=== PATIENT | female | born 1950 | race Caucasian/White ===

== ENCOUNTER 2016-09-14 11:47 | Inpatient (IN) | payer OTHER ==
--- NOTE | ~2016-09-14 | DS ---
Unit #: [id number] #: [id number] Patient: MC BANKS [id number] [facility]. [place], [place] [address] [id number] I MR#: [id number] NAME: MC BANKS ROOM: 340 Age: 65 Sex: F Admission Date: 09/14/2016 : 1950 Discharge Date: 09/16/2016 Attending Physician: Darcy Love M.D. Primary Care Physician: No Primary Care Physician DISCHARGE SUMMARY FINAL DIAGNOSES 1. Acute exacerbation of chronic obstructive pulmonary disease. 2. Acute bronchitis. 3. Anxiety syndrome. 4. Headache, etiology uncertain. 5. Chest pain. CONSULTANTS Dr. Nicholson. PROCEDURES 1. Stress test. 2. 2D echo. Ms. Banks is a 65-year-old female with a history of COPD who has not seen any physician in two years. She presented to the emergency room and, because we had seen her in the past, she was admitted to our service. She was thought to have an acute bronchitis and exacerbation of COPD. She as originally started on Rocephin and Zithromax. She has got an allergy to erythromycin base and, therefore, I stopped the Zithromax. Her chest x-ray, however, did not show any definite infiltrate and on repeat still didn't show any definite infiltrate. She was started on Solu-Medrol 125 IV q.8 but that was tapered rather quickly. She has been tapered down but is rather insistent on leaving today. She was seen by Dr. Nicholson and she had a 2D echo which revealed mild elevation in RVSP two 40 mmHg and she also had grade 1 diastolic dysfunction, normal right ventricular size and function and no significant valve abnormalities except trace mitral regurgitation and tricuspid valve mild regurgitation. Therefore, looking at the results, it's a fair chance that if she has pulmonary hypertension it is group 2 in nature. She developed a headache, had it last night, was given one Vicodin and then said Tylenol wasn't enough for headache today. I said I am concerned because she hadn't seen a doc in two years, she doesn't take pain medicine at home as far as I know and, therefore, thought that she needed a CT head if she needed opiates to take care of her headache. She has refused this and is basically demanding to go home. Therefore, I will comply with her wishes. She did have a stress test today and that revealed small anterior ischemic area and Dr. De Luna suggested medical management. He added Ranexa and she was already started on Norvasc. She will be sent home on the following medicines: 1. Albuterol mini nebs, which she should already have, q.i.d. p.r.n. 2. Prednisone 10 mg three p.o. daily, decreasing every three days to Unit #: [id number] #: [id number] Patient: MC BANKS. 3. Norvasc 5 mg p.o. daily. 4. Doxycycline 100 mg p.o. b.i.d. 5. Ranexa 500 mg p.o. b.i.d. I will give her a prescription for Spiriva. Will need to see if discharge management can help her get some of these medicines filled. She can follow with me in three to four weeks but she absolutely has to get a primary doc. I will not write Xanax. Dictated by... Bryan Samson M.D. AMELIA/markos TD: 09/17/2016 07:12 JOB #: [id number] DISCHARGE SUMMARY Page 1 of 1 X Bryan Samson MD X DISCHARGE SUMMARY
--- NOTE | ~2016-09-14 | CR72 ---
[facility] A Service of [facility] RADIOLOGY TEXT RESULTS PATIENT: MC UFENTES LOCATION: [facility] : [birth year] UNIT #: [id number] AGE: [address]: Mervin Shepard MD SEX: F ORDER DR: [id number] [facility] [address] [place], [place] [address] [id number] E MR#: [id number] Acc #: [id number] NAME: MC FUENTES : 1950 SEX: F STUDY DATE/TIME: 09/14/2016 11:44 UNIT: [facility] ROOM: STUDY DESCRIPTION: CR Chest Single View Portable Attending Physician: Devante Shepard M.D. Ordering Physician: Ed Jordin Walker M.D. Primary Care Physician: Physician No Primary Care MEDICAL IMAGING REPORT This report is preliminary unless electronic signature is present EXAM Chest portable 09/14/2016 1144 hours CLINICAL HISTORY 65-year-old woman complaining of chest pain and shortness of air since last night. Former smoker with history of COPD. COMPARISON 07/20/2014 FINDINGS Portable upright chest demonstrates the patient to be somewhat rotated to the right. The heart size is within normal limits. The aorta is mildly tortuous. There are emphysematous changes in the lungs with pulmonary venous distension and mild bibasilar interstitial prominence increased over the prior exam. This could represent atelectasis or mild basilar edema. No effusions. IMPRESSION Emphysematous changes with mild pulmonary venous distension and increase in interstitial markings at both lung bases as compared to 07/20/2014. Some of this could be technical but basilar interstitial edema cannot be excluded. There is no cardiomegaly or pleural fluid. Dictated by... Lucy Burns M.D. THIS IS AN ELECTRONICALLY VERIFIED REPORT Lucy Burns M.D. at 09/14/2016 2:29 PM NATALIYA/juan c TD: 09/14/2016 13:56 [facility] A Service of [facility] RADIOLOGY TEXT RESULTS PATIENT: MC FUENTES [facility] #: [id number] : [birth year] UNIT #: [id number] AGE: [address]: Mervin Shepard MD SEX: F ORDER DR: JOB #: [id number] MEDICAL IMAGING REPORT Page 1 of 1 COPY
--- NOTE | ~2016-09-14 | ST ---
Unit #: [id number] #: [id number] Patient: CM FUENTES [id number] [address] [place], [place] [address] [id number] I MR#: [id number] NAME: MC FUENTES. : 1950 SEX: F STUDY DATE/TIME: 09/16/2016 UNIT: C3A PCU ROOM: 340 STUDY DESCRIPTION: Stress cadriolite imaging Attending Physician: Darcy Love M.D. Primary Care Physician: No Primary Care Physician CARDIOLOGY REPORT EXAM Stress Cardiolite imaging. INDICATION FOR STUDY Dyspnea, atypical chest discomfort, shortness of breath, chronic obstructive pulmonary disease. SUMMARY The patient received Lexiscan intravenously while at rest, as well as technetium 99m Cardiolite 10.55 and 33.4 mCi at rest and stress respectively. Appropriate views were obtained. FINDINGS Resting ECG is abnormal with 0.[address] depression in leads, 2, 3, AVF, V4 through V6. With stress there was additional 0.[address] depression, but no dysrhythmias and no heart block. Perfusion images demonstrate enlarged RV. Left ventricular size is normal. End-diastolic volume 70 ml, ejection fraction 67%, with no discrete wall motion abnormalities. Qualitative ejection fraction appears to be closer to 55%. There is no significant patient motion noted at rest or stress. There is breast attenuation artifact, but no increased lung uptake. Right ventricle appears enlarged. Left ventricular size appears normal. Summed stress scores is 5. No summed difference scores is available. Perfusion images demonstrate intestinal artifact more present at stress than at rest. There is a moderate decrease in perfusion of a small area of the distal anterior wall with stress, not present at rest. Otherwise perfusion is normal and equivalent between rest and stress. IMPRESSION 1. No infarction. 2. Small area of moderate distal anterior wall ischemia. 3. Medications recommended, since chest pain is rare. 4. Normal heart function and left ventricular size. 5. Right ventricle appears enlarged. Dictated by... Heath De Luna M.D. Wan TD: 09/16/2016 13:20 Unit #: [id number] #: [id number] Patient: MC FUENTES JOB #: [id number] CARDIOLOGY REPORT Page 1 of 1 X Heath De Luna MD CARDIOLOGY REPORT
--- NOTE | ~2016-09-14 | HP ---
Unit #: [id number] #: [id number] Patient: MC BANKS [id number] [address] [place], [place] [address] [id number] I MR#: [id number] NAME: MC BANKS. ROOM: 340 Age: 65 Sex: F Admission Date: 09/14/2016 : 1950 Attending Physician: Darcy Love M.D. Primary Care Physician: Primary Care Physician No HISTORY AND PHYSICAL HISTORY OF PRESENT ILLNESS Ms. Banks is a 65-year-old female seen by us in the past, now presents with recurrent shortness of air. Unfortunately, she does not see a physician regularly. That is, does not see a primary physician, has not seen us in two years, has not seen us in the office but was admitted to us again. She complains of a cough but not really coughing up much of anything. She has been short of breath for a few days. She does not really want to talk a whole lot because she is short of breath and anxious. She has not smoked in about two years. PAST MEDICAL HISTORY Significant for: 1. Pneumonia back in 2014. 2. History of COPD. 3. Hypertension. 4. Bipolar disorder. PAST SURGICAL HISTORY Tubal ligation. HOME MEDICATIONS Include: Proventil two puffs q.i.d. p.r.n. ALLERGIES 1. Sulfa. 2. Erythromycin. SOCIAL HISTORY She did previously smoke but she quit two years ago. FAMILY HISTORY Significant for colon cancer and coronary artery disease. REVIEW OF SYSTEMS She has no nausea, vomiting or diarrhea. She only complains of anxiety. PHYSICAL EXAMINATION VITAL SIGNS: Temperature 98.6, pulse 103, respirations 20, blood pressure 148/92. GENERAL: She presents as an older female in no acute distress. Unit #: [id number] #: [id number] Patient: MC BANKS NECK: Without adenopathy. LUNGS: Evaluation of her lungs reveals that her breathing is not labored. She has fair inspiratory breath sounds. She has expiratory wheezes bilaterally. HEART: Mildly tachycardic. ABDOMEN: Soft. Bowel sounds are present. EXTREMITIES: Without edema. DIAGNOSTIC STUDIES LABORATORY: Blood gas was done on 40%, I think it was BiPAP, pH 7.368, pCO2 of 52, pO2 of 150. Serum chemistry significant for BUN 17, creatinine 0.8. BNP was only 34. White blood cell count was 8.9, hemoglobin 13, hematocrit 41, platelets 235,000. IMAGING: Chest x-ray to my exam reveals increased interstitial markings bilaterally, particularly at the bases in a symmetric fashion. I agree with the way it was written by the radiologist that this could be consistent with some edema. CARDIOVASCULAR: EKG, to my exam, reveals rate 99, sinus rhythm, nonspecific ST changes. IMPRESSION 1. Acute exacerbation of chronic obstructive pulmonary disease. 2. Increased interstitial markings, etiology uncertain. I am not really sure with the BNP that this is truly congestive heart failure although it is certainly still a consideration. PLAN 1. Will check a 2D echo tomorrow. 2. Treat her with IV steroids and IV Rocephin but will hold Zithromax. 3. I will get a viral DNA probe. Dictated by Manisha Welsh/govind TD: 09/14/2016 19:27 JOB #: [id number] HISTORY AND PHYSICAL Page 1 of 1 X Bryan Samson MD HISTORY AND PHYSICAL
--- NOTE | ~2016-09-14 | ST ---
Unit #: [id number] #: [id number] Patient: MC FUENTES [id number] [address] [address] [id number] I MR#: [id number] NAME: MC FUENTES. : 1950 SEX: F STUDY DATE/TIME: 09/16/2016 UNIT: C3A PCU ROOM: 340 STUDY DESCRIPTION: Cardiac stress test. Attending Physician: Darcy Love M.D. Primary Care Physician: No Primary Care Physician CARDIOLOGY REPORT EXAM Cardiac stress test. Results included in Cardiolite imaging report. Dictated by... Heath De Luna M.D. PJR/gz TD: 09/16/2016 13:27 JOB #: [id number] CARDIOLOGY REPORT Page 1 of 1 X Heath De Luna MD CARDIOLOGY REPORT
--- NOTE | ~2016-09-14 | CR63 ---
[facility] A Service of [facility] & [facility] RADIOLOGY TEXT RESULTS PATIENT: MC FUENTES LOCATION: [facility] 340-01 : [birth year] UNIT #: [id number] AGE: [address]: Tomás Love MD SEX: F ORDER DR: [id number] [facility] [address] [place], [place] [address] [id number] I MR#: [id number] Acc #: [id number] NAME: MC FUENTES : 1950 SEX: F STUDY DATE/TIME: 09/15/2016 11:05 UNIT: [address] ROOM: [facility] STUDY DESCRIPTION: CR Chest 2 View Attending Physician: Darcy Love M.D. Ordering Physician: Darcy Love M.D. Primary Care Physician: No Primary Care Physician MEDICAL IMAGING REPORT This report is preliminary unless electronic signature is present EXAM 2-view chest 09/15/2016. HISTORY 65-year-old female with cough and congestion for 2 days. Essential hypertension. COMPARISON Chest 09/14/2016. FINDINGS 2 views of the chest demonstrate clear lungs. No pleural effusion or pneumothorax. Heart size, mediastinum within normal limits. Pulmonary vasculature unremarkable. IMPRESSION No acute cardiopulmonary findings. Dictated by... Nba Andrea M.D. THIS IS AN ELECTRONICALLY VERIFIED REPORT Nba Andrea M.D. at 09/16/2016 8:11 AM ELISABETH/toshia TD: 09/15/2016 15:54 JOB #: [id number] MEDICAL IMAGING REPORT Page 1 of 1 COPY
--- NOTE | ~2016-09-14 | CO ---
Unit #: [id number] #: [id number] Patient: MC FUENTES [id number] [address] [place], [place] [address] [id number] I MR#: [id number] NAME: MC FUENTES. ROOM: 340 Age: 65 Sex: F Admission Date: 09/14/2016 : 1950 Attending Physician: Darcy Love M.D. CONSULTATION REPORT REASON FOR CONSULTATION Chest pain. HISTORY OF PRESENT ILLNESS This is a pleasant 65-year-old female, who appears much older than her stated age. She has a past medical history of known COPD, hypertension, bipolar disorder, severe anxiety, tobacco abuse, as well as reformed alcoholism. The patient was admitted secondary to shortness of breath and dyspnea on exertion. She was currently being evaluated in the ER T3 and is currently on BiPAP. The patient's daughter is at bedside. The patient was able to give me information, also additional information was obtained from the daughter as well as the previous chart and records. According to the daughter, the patient is on home O2 24 hours a day at 2 L nasal cannula. She also has not had insurance for the past 2 years and has not had much followup as far as her medical status secondary to cost. She reports she was at home noticing increasing issues with shortness of breath that worsened yesterday. Reports extreme shortness of breath with exertion as well as complaints of substernal chest discomfort which radiates underneath both breasts bilaterally. She denies any complaints of diaphoresis, nausea, or vomiting and denies any radiation of the pain into her arms, jaw, or teeth. According to the daughter and the patient, she has never had formal ischemic workup on her heart. She has been on blood pressure medication in the past, but has not been recently secondary to inability to afford them. The daughter states, however, recently she was approved for Medicaid. Initial point of care troponins have been negative. EKG shows normal sinus rhythm, rate of 99 beats per minute, nonspecific ST abnormality. No acute ischemic changes noted. QTc interval 449 milliseconds. Her chest x-ray shows emphysema, changes with mild pulmonary venous distention and increase in interstitial markings at both lung bases. Her BNP is normal at 34. In the emergency room, she has been treated with aspirin as well as nitroglycerin which has relieved her pain somewhat. At present, her primary complaint is just feeling like she cannot breathe. Again, she is currently on BiPAP and ABGs are currently pending. Pulmonary has been consulted to see. PAST MEDICAL HISTORY 1. COPD, on chronic oxygen therapy 2 L nasal cannula. 2. Hypertension, has not been on medications for quite some time secondary to inability to afford them. 3. Bipolar disorder with severe anxiety. PAST SURGICAL HISTORY Unit #: [id number] #: [id number] Patient: MC FUENTES A Tubal ligation. ALLERGIES Erythromycin and sulfa. HOME MEDICATIONS Proventil inhalation b.i.d., albuterol q.i.d. The patient thinks she was on amlodipine 5 mg p.o. daily, however, she has not been on this in quite some time secondary to inability to afford. FAMILY HISTORY Positive for coronary artery disease and PR in her father who in his 50s. SOCIAL HISTORY The patient is a tobacco user, smokes 1 to 2 packs a day for approximately 40 years. She is a reformed alcoholic, drinking approximately 15 years ago. Denies illicit drug use. Of note, the patient has been off some of her medications for the last couple of years secondary to no insurance. She states she was recently approved for Medicaid. REVIEW OF SYSTEMS Negative except for what was stated above in the HPI. PHYSICAL EXAMINATION VITAL SIGNS: Temperature 98.2, pulse is 99 to 110, respiratory rate 22, blood pressure 150/90. GENERAL: This is a pleasant 65-year-old female, who is currently in the ER T3 on BiPAP. HEENT: Head is atraumatic and normocephalic. Pupils are equal and round. Mucous membranes were not assessed secondary to presence of mask. CARDIOVASCULAR: S1, S2. Slightly tachycardic. No murmurs, gallops, or rubs. CHEST: Lungs breath sounds are diminished throughout. Minimal air movement is noted. ABDOMEN: Soft, nontender, nondistended. No hepatomegaly. No masses. EXTREMITIES: Pulses are weak. Extremities are cool. She does have some discoloration of her toes bilaterally which the daughter states is chronic. NEUROLOGIC: She is awake, alert, and oriented. She moves all extremities. She answers questions appropriately and follows commands with ease. DIAGNOSTIC STUDIES LABORATORY RESULTS: Glucose 90, BUN 17, creatinine 0.8, sodium 141, potassium 3.8, chloride 102, CO2 of 31. BNP 34. Point of care troponins have been negative x2. Hemoglobin 13.0, hematocrit 41.3, WBCs 8.9, platelet count 235. She has repeat troponin which is pending. IMAGING STUDIES: Chest x-ray shows changes suggestive of emphysema with mild pulmonary venous distention and increased interstitial markings at both lung bases. There is no cardiomegaly or pleural fluid. CARDIOVASCULAR STUDIES: EKG shows normal sinus rhythm, rate 99 beats per minute, nonspecific ST abnormality. No acute ischemic changes noted. QTc interval 449 msec. IMPRESSION 1. Acute chronic obstructive pulmonary disease exacerbation. Unit #: [id number] #: [id number] Patient: MC FUENTES 2. Chest pain. Rule out myocardial infarction. 3. Hypertension. 4. Bipolar disorder. 5. Severe anxiety. 6. Continued tobacco abuse. 7. Reformed alcoholic, quit drinking approximately 15 years ago. PLAN The patient is currently on BiPAP. Thus far, her point of care enzymes have been negative. Her EKG appears within normal limits except for some nonspecific ST abnormality. There is no acute ischemic change noted. The patient does have risk factors for coronary artery disease which include hypertension, tobacco abuse, and a family history of coronary artery disease. It appears she has not had any formal ischemic workup in the past and once her respiratory status is better, we will need to do ischemic heart disease workup. We will trend cardiac enzymes and check a TSH and fasting lipid profile and she will have an EKG in the morning tomorrow. We will also check 2D echocardiogram to assess her left ventricular systolic function. She will also be restarted on Norvasc 5 mg p.o. daily with parameters to hold for systolic blood pressure less than 100. This has been discussed with the daughter and the patient and they are agreeable. Dictated by... William Stevenson/modl TD: 09/15/2016 06:36 JOB #: [id number] CONSULTATION REPORT Page 1 of 1 X Tiffanie,Harleen M AUTOMOTIVE MACHINIST X CONSULTATION REPORT
--- NOTE | ~2016-09-14 | EKG ---
PATIENT: MC FUENTES UNIT #: [id number] Ventricular Rate: 99 BPM Atrial Rate: 99 BPM P-R Interval: 124 ms QRS Duration: 78 ms Q-T Interval: 350 ms QTC Calculation(Bezet): 449 ms P Pooler: 67 degrees Calculated R Pooler: 48 degrees Calculated T Pooler: 40 degrees Diagnosis Line: Normal sinus rhythm Diagnosis Line: Nonspecific ST abnormality Diagnosis Line: Otherwise normal ECG Diagnosis Line: When compared with ECG of 18-JUL-2014 13:54, Diagnosis Line: T wave inversion no longer evident in Inferior Diagnosis Line: leads Diagnosis Line: Confirmed by ELOISA ACEVEDO MD ([id number]) on 09/16/2016 Diagnosis Line: 4:03:29 PM INTERPRETING MD: CURTIS HOWELL
--- NOTE | ~2016-09-14 | EKG ---
PATIENT: MC FUENTES UNIT #: [id number] Ventricular Rate: 91 BPM Atrial Rate: 91 BPM P-R Interval: 122 ms QRS Duration: 84 ms Q-T Interval: 366 ms QTC Calculation(Bezet): 450 ms P [place]: 70 degrees Calculated R [place]: 49 degrees Calculated T [place]: 42 degrees Diagnosis Line: Normal sinus rhythm Diagnosis Line: Normal ECG Diagnosis Line: Diagnosis Line: Confirmed by RAMSES ANDRES MD ([id number]) on 09/16/2016 Diagnosis Line: 8:37:16 PM INTERPRETING MD: DMITRY HOWELL
[2016-09-14 11:27] LABS: POC - CKMB 2.7 ng/mL (0.0-7.9); POC - TROPONIN <0.05 ng/mL (<=0.05)
[~2016-09-14 11:47] MED LIST: ACETAMINOPHEN325 MG PO; ALBUTEROL MININEB NEB; ALBUTEROL1.25 MG/3 IH; ALBUTEROL17 GM INH; ALBUTEROL2.5 MG/0.5 IH; AZITHROMYCIN1 GM PO; BLOOD PRESSURE PILL; BUDESONIDE0.5 MG/2 M IH; BUPROPION XL150 MG PO; CEFTIN PO; CIPRO PO; COMBIVENT14.7 GM INH; ERYTHROCIN STE250 M2 PO; FLUOXETINE 10 MG; GUAIFENESIN; HYDROXYZINE HCL10 MG; HYDROXYZINE HCL25 M1 PO; HYDROXYZINE PAM25 M1 PO; INHALER; LEVAQUIN PO; LEVAQUIN750 MG PO; LEVOFLOXACIN500 MG; MORGIDOX100 MG PO; NEBULIZER MACHINE; NEBULIZER1 PKT MC; NICOTINE TRANSD14 MG EXT; NICOTINE TRANSD21 MG EXT; NORVASC PO; PEPCID40 MG PO; PERFOROMIS20 MCG/2 M IH; PREDNISOLONE5 GM; PREDNISONE PO; PREDNISONE10 MG PO; PREDNISONE10 MG/DOSE PO; PROVENTIL2 MG PO; PROVENTIL4 MG; SARAFEM20 MG PO; SELFEMRA20 MG PO; SPIRIVA18 MCG INH; WELLBUTRIN SR150 MG PO; WELLBUTRIN XL150 M1 PO; ZITHROMAX PO; [UNRECOGNIZED DRUG - OTHER]
[2016-09-14] MEDS ORDERED: ALBUTEROL 0.5ML INH (11:48)
[2016-09-14] MEDS ORDERED: ALBUTEROL20 ml INH (11:48)
[2016-09-14 11:57] LABS: BASOPHIL% 0.5 % (0-2.5); EOSINOPHIL# 0.1 X10e3 (0-0.7); HEMATOCRIT 41.3 % (35.0-45.0); LYMPHOCYTE# 2.4 X10e3 (1.0-3.5); LYMPHOCYTE% 27.4 % (17.0-45.0); MEAN CELL VOLUME 86.9 FL (83-96); MEAN CORPUSCULAR HEMOGLOBIN 27.3 PG (28-34); MEAN CORPUSCULAR HGB CONC 31.5 g/dL (30-36); MEAN PLATELET VOLUME 9.4 FL (6.5-11.5); MONOCYTE# 0.5 X10e3 (0-1.0); MONOCYTE% 5.9 % (3.0-12.0); NEUTROPHIL# 5.8 X10e3 (1.5-7.1); NEUTROPHIL% 65.2 % (40-75); PLATELET COUNT 235 X10e3 (140-420); RED BLOOD COUNT 4.75 X10e (3.90-5.30); RED CELL DISTRIBUTION WIDTH 14.9 % (11.0-15.5); WHITE BLOOD COUNT 8.9 X10e3 (4.0-10.5)
[2016-09-14 12:03] LABS: DIFF IND NO
[2016-09-14 12:20] LABS: BUN/CREATININE RATIO 21.25; CALCIUM SERUM 9.2 mg/dL (8.4-10.2); CREATININE SERUM 0.8 mg/dL (0.6-1.4); GLOM FILT RATE Estimated 78.5 mL/min (>60); POTASSIUM 3.9 mmol/L (3.5-5.1)
[2016-09-14 12:56] LABS: POC - CKMB 3.1 ng/mL (0.0-7.9); POC - TROPONIN <0.05 ng/mL (<=0.05)
[2016-09-14 15:41] LABS: ARTERIAL BLD GAS O2 SATURATION 96.3 % (90.0-100.0); ARTERIAL BLOOD GAS CARBOXY HB 2.3 %sat (0.0-9.0); ARTERIAL BLOOD GAS HCO3 30.2 mmol/L; ARTERIAL BLOOD GAS MET HB 0.9 %sat (0.0-2.0); ARTERIAL BLOOD GAS PCO2 52.6 mmHg (35.0-45.0); ARTERIAL BLOOD GAS pH 7.368 (7.350-7.450)
[2016-09-14 15:42] LABS: ARTERIAL BLOOD GAS ALLEN TEST NORMAL; ARTERIAL BLOOD GAS ART SITE RIGHT RADIAL; ARTERIAL BLOOD GAS DELIVERY BIPAP 14/6; ARTERIAL DRAW? YES
[2016-09-14 19:51] LABS: %MB 3.8 % (0.0-4.0); MB 5.2 ng/ml
[2016-09-15 01:01] LABS: HEMATOCRIT 39.8 % (35.0-45.0); HEMOGLOBIN 12.6 gm/dL (12.0-16.0); MEAN CELL VOLUME 86.8 FL (83-96); MEAN CORPUSCULAR HEMOGLOBIN 27.6 PG (28-34); MEAN CORPUSCULAR HGB CONC 31.8 g/dL (30-36); MEAN PLATELET VOLUME 8.8 FL (6.5-11.5); RED BLOOD COUNT 4.58 X10e (3.90-5.30); RED CELL DISTRIBUTION WIDTH 15.5 % (11.0-15.5); WHITE BLOOD COUNT 6.8 X10e3 (4.0-10.5)
[2016-09-15 01:37] LABS: PROCALCITONIN <0.05 NG/ML
[2016-09-15 01:55] LABS: %MB 4.4 % (0.0-4.0); MB 4.8 ng/ml
[2016-09-15 02:05] LABS: ALKALINE PHOSPHATASE 67 U/L (32-92); ALT (SGPT) 18 U/L (10-40); AST (SGOT) 22 U/L (10-42); BILIRUBIN,TOTAL 0.2 mg/dL (0.2-2.0); BLOOD UREA NITROGEN 25 mg/dL (9-23); BUN/CREATININE RATIO 31.25; CARBON DIOXIDE 28 mmol/L (22-31); CHLORIDE 102 mmol/L (100-111); CHOLESTEROL 194 mg/dL (0-200); CREATININE SERUM 0.8 mg/dL (0.6-1.4); GLOM FILT RATE Estimated 78.5 mL/min (>60); GLUCOSE FASTING 197 mg/dL (70-110); HDL CHOLESTEROL 102 mg/dL (35-95); LDL CHOLESTEROL 82 mg/dL ([, -130]); LDL/HDL RATIO 1 RATIO (0-4); POTASSIUM 4.5 mmol/L (3.5-5.1); PROTEIN TOTAL SERUM 6.6 g/dL (6.0-8.3); SODIUM 136 mmol/L (135-145); TRIGLYCERIDES 50 mg/dL (10-160)
[2016-09-15 09:04] LABS: %MB 5.4 % (0.0-4.0); MB 5.6 ng/ml
[2016-09-16] MEDS ORDERED: RANEXA500 MG PO (15:05)
[2016-09-16] MEDS ORDERED: NORVASC PO (15:06)
[2016-09-16] MEDS ORDERED: SPIRIVA18 MCG INH (15:07)
[2016-09-16] MEDS ORDERED: DOXYCYCLINE HY100 M3 PO (15:07)
[2016-09-16] MEDS ORDERED: PREDNISOLONE5 MG PO (15:08)
== END 2016-09-16 16:36 | disposition home or self-care (01) | DRG 192 ==
LOC: CED 11:47 → CEDOF 14:50 → C3A PCU 17:13
PROVIDERS: Emergency Medicine; Internal Medicine Pulmonary Disease
PROC: B246YZZ Ultrasonography of Right and Left Heart using Other Contrast (ICD-10-PCS; principal; 2016-09-15)
DX: J44.0 Chronic obstructive pulmonary disease with (acute) lower respiratory infection (principal); I10 Essential (primary) hypertension; J20.9 Acute bronchitis, unspecified; J44.1 Chronic obstructive pulmonary disease with (acute) exacerbation; Z87.891 Personal history of nicotine dependence; F31.9 Bipolar disorder, unspecified; F10.21 Alcohol dependence, in remission; Z88.1 Allergy status to other antibiotic agents; Z88.2 Allergy status to sulfonamides; Z82.49 Family history of ischemic heart disease and other diseases of the circulatory system; F41.9 Anxiety disorder, unspecified; R51 Headache; R07.9 Chest pain, unspecified; Z80.0 Family history of malignant neoplasm of digestive organs
CPT/HCPCS: 36415; 36600; 71010; 71020; 78452; 80048; 80053; 80061; 82308; 82550; 82553; 82803; 83880; 84443; 84484; 85025; 85027; 87633; 93005; 93017; 93306; 94640; 94660; 94760; 96374; 99285; A9500; J0456; J0696; J1650; J2060; J2785; J2920; J2930

== ENCOUNTER 2016-10-27 00:37 | Emergency (ER) | payer OTHER ==
--- NOTE | ~2016-10-27 | EKG ---
PATIENT: MC FUENTES UNIT #: [id number] Ventricular Rate: 95 BPM Atrial Rate: 95 BPM P-R Interval: 116 ms QRS Duration: 82 ms Q-T Interval: 342 ms QTC Calculation(Bezet): 429 ms P [place]: 68 degrees Calculated R [place]: 54 degrees Calculated T [place]: 52 degrees Diagnosis Line: Normal sinus rhythm Diagnosis Line: Normal ECG Diagnosis Line: When compared with ECG of 15-SEP-2016 07:05, Diagnosis Line: No significant change was found Diagnosis Line: Confirmed by EVAN DEVI MD ([id number]) on Diagnosis Line: 10/31/2016 8:30:10 AM INTERPRETING MD: SHANDRA HOWELL
--- NOTE | ~2016-10-27 | CR72 ---
[facility] A Service of [facility] RADIOLOGY TEXT RESULTS PATIENT: MC FUENTES LOCATION: SED : 54 UNIT #: [id number] AGE: [address]: Carter Moss MD SEX: F ORDER DR: [id number] [address] [address] [id number] E MR#: [id number] Acc #: [id number] NAME: MC FUENTES : 1950 SEX: F STUDY DATE/TIME: 10/27/2016 01:12 UNIT: SED ROOM: STUDY DESCRIPTION: CR Chest Single View Portable Attending Physician: Carter Moss M.D. Ordering Physician: Carter Moss M.D. Primary Care Physician: No Primary Care Physician MEDICAL IMAGING REPORT This report is preliminary unless electronic signature is present. EXAM Portable chest, 10/27 at 01:12. INDICATIONS Shortness of air for 3 days. COPD. FINDINGS AP portable chest compared with 09/15/16. Heart is enlarged. There is emphysema. There is some mild atelectasis or infiltrate at the left base. Lungs are otherwise clear. No pneumothorax. IMPRESSION Cardiomegaly and emphysema. Very mild atelectasis or infiltrate in the left lung base. Dictated by... Santy Dominguez Jr., M.D. THIS IS AN ELECTRONICALLY VERIFIED REPORT Santy Dominguez Jr., M.D. at 10/28/2016 3:16 AM ISAÍAS/efe TD: 10/27/2016 06:20 JOB #: [id number] MEDICAL IMAGING REPORT Page 1 of 1
[~2016-10-27 00:37] MED LIST changes: +ALBUTEROL 0.5ML INH; +ALBUTEROL20 ml INH; +DOXYCYCLINE HY100 M3 PO; +PREDNISOLONE5 MG PO; +RANEXA500 MG PO
[2016-10-27] MEDS ORDERED: ALPRAZOLAM (00:50)
[2016-10-27] MEDS ORDERED: DULERA 100 MCG/13 GM (00:50)
[2016-10-27 01:12] LABS: BASOPHIL# 0.1 X10e3 (0-0.3); BASOPHIL% 0.8 % (0-2.5); EOSINOPHIL# 0.8 X10e3 (0-0.7); EOSINOPHIL% 9.2 % (0.0-7.0); HEMATOCRIT 37.9 % (35.0-45.0); LYMPHOCYTE# 1.3 X10e3 (1.0-3.5); LYMPHOCYTE% 14.9 % (17.0-45.0); MEAN CELL VOLUME 86.8 FL (83-96); MEAN CORPUSCULAR HEMOGLOBIN 27.5 PG (28-34); MEAN CORPUSCULAR HGB CONC 31.7 g/dL (30-36); MEAN PLATELET VOLUME 8.8 FL (6.5-11.5); MONOCYTE# 0.8 X10e3 (0-1.0); MONOCYTE% 8.9 % (3.0-12.0); NEUTROPHIL# 5.6 X10e3 (1.5-7.1); NEUTROPHIL% 66.2 % (40-75); PLATELET COUNT 203 X10e3 (140-420); RED BLOOD COUNT 4.37 X10e (3.90-5.30); RED CELL DISTRIBUTION WIDTH 16.2 % (11.0-15.5); WHITE BLOOD COUNT 8.5 X10e3 (4.0-10.5)
[2016-10-27 01:13] LABS: DIFF IND NO
[2016-10-27 01:25] LABS: CALCIUM SERUM 8.8 mg/dL (8.4-10.2); CREATININE SERUM 0.8 mg/dL (0.6-1.4); GLOM FILT RATE Estimated 78.5 mL/min (>60); POTASSIUM 3.6 mmol/L (3.5-5.1)
[2016-10-27 01:30] LABS: POC - TROPONIN <0.05 ng/mL (<=0.05)
== END 2016-10-27 02:27 | disposition home or self-care (01) ==
LOC: SED 00:37
PROVIDERS: Emergency Medicine
DX: J44.1 Chronic obstructive pulmonary disease with (acute) exacerbation (principal); I10 Essential (primary) hypertension; F31.9 Bipolar disorder, unspecified; F17.200 Nicotine dependence, unspecified, uncomplicated
CPT/HCPCS: 36415; 71010; 80048; 82553; 84484; 85025; 93005; 94640; 96374; 99284; J2930

== ENCOUNTER 2016-11-18 07:24 | Emergency (ER) | payer OTHER ==
--- NOTE | ~2016-11-18 | CR72 ---
[facility] A Service of [facility] RADIOLOGY TEXT RESULTS PATIENT: MC FUENTES LOCATION: [facility] : 54 UNIT #: [id number] AGE: [address]: Pete Sexton DO SEX: F ORDER DR: [id number] [facility] [address] [place], [place] [address] [id number] E MR#: [id number] Acc #: [id number] NAME: MC FUENTES : 1950 SEX: F STUDY DATE/TIME: 11/18/2016 8:12 UNIT: [facility] ROOM: STUDY DESCRIPTION: CR Chest Single View Portable Attending Physician: Pete Sexton D.O. Ordering Physician: Pete Sexton D.O. Primary Care Physician: [facility] MEDICAL IMAGING REPORT This report is preliminary unless electronic signature is present EXAM Chest x-ray portable HISTORY Short of air, cold chills, seen last week. Symptoms for 1 week. Former smoker with history of COPD. COMMENT Single frontal portable view of the chest timed 08:12 on 11/18/2016 is compared to 10/27/2016. Film is rotated to the right side. There is probably ectasia of the ascending thoracic aorta allowing for this and this is probably not changed. I am concerned for an infiltrate at the medial right lung base. There is atelectasis at the left lung base at least. Given the positioning issues on the current study and the concern for infiltrate, recommend correlation with a PA and lateral chest x-ray for better evaluation of lung bases. There is no congestive failure. No definite pleural effusion. No pneumothorax. IMPRESSION Concern for a right lower lobe infiltrate with some bilateral lower lung atelectasis. Unfortunately, the film is rotated to the right side. I would recommend the patient be evaluated with a PA and lateral chest x-ray for better assessment of probable airspace disease. Dictated by... Mi Dorantes M.D. [facility] A Service of [facility] RADIOLOGY TEXT RESULTS PATIENT: MC FUENTES [id number] : 54 UNIT #: [id number] AGE: [address]: Pete Sexton DO SEX: F ORDER DR: THIS IS AN ELECTRONICALLY VERIFIED REPORT Mi Dorantes M.D. at 11/20/2016 8:38 AM Nicole TD: 11/19/2016 07:16 JOB #: [id number] MEDICAL IMAGING REPORT Page 1 of 1 COPY
--- NOTE | ~2016-11-18 | CR63 ---
[facility] A Service of [facility] RADIOLOGY TEXT RESULTS PATIENT: MC FUENTES LOCATION: [facility] : 54 UNIT #: [id number] AGE: [address]: Pete Sexton DO SEX: F ORDER DR: [id number] [facility] [address] [place], [place] [address] [id number] E MR#: [id number] Acc #: [id number] NAME: MC FUENTES : 1950 SEX: F STUDY DATE/TIME: 11/18/2016 12:32 UNIT: [facility] ROOM: STUDY DESCRIPTION: CR Chest 2 View Attending Physician: Pete Sexton D.O. Ordering Physician: Pete Sexton D.O. Primary Care Physician: [facility] MEDICAL IMAGING REPORT This report is preliminary unless electronic signature is present EXAM Chest x-ray 11/18/2016 HISTORY 65-year-old female in the ED complaining of 1-week history of worsening shortness of air, cough and congestion. Right basilar infiltrate was questioned on earlier AP study, and a repeat PA and lateral exam was recommended. TECHNIQUE PA and lateral upright chest series. FINDINGS The exam shows generalized pulmonary emphysema. Probable linear scarring and volume loss in the right lung base, present on chest CT 07/04/2014 and chest x-ray 07/06/2014. No visible airspace consolidation or pleural effusion. Remaining portions of both lungs are clear. Stable mild cardiomegaly with normal pulmonary vascularity. IMPRESSION Pulmonary emphysema with scarring and/or atelectasis in the right lung base. Dictated by... Zev Law M.D. THIS IS AN ELECTRONICALLY VERIFIED REPORT Zev Law M.D. at 11/20/2016 8:49 AM RICKIW/low TD: 11/19/2016 08:56 [facility] A Service of [facility] RADIOLOGY TEXT RESULTS PATIENT: MC FUENTES LOCATION: [facility] #: [id number] : 54 UNIT #: [id number] AGE: [address]: Pete Sexton DO SEX: F ORDER DR: JOB #: [id number] MEDICAL IMAGING REPORT Page 1 of 1 COPY
--- NOTE | ~2016-11-18 | EKG ---
PATIENT: MC FUENTES UNIT #: [id number] Ventricular Rate: 90 BPM Atrial Rate: 90 BPM P-R Interval: 118 ms QRS Duration: 80 ms Q-T Interval: 342 ms QTC Calculation(Bezet): 418 ms P Vista: 76 degrees Calculated R Vista: 65 degrees Calculated T Vista: 40 degrees Diagnosis Line: Normal sinus rhythm Diagnosis Line: Normal ECG Diagnosis Line: When compared with ECG of 27-OCT-2016 00:52, Diagnosis Line: No significant change was found Diagnosis Line: Confirmed by DURGA ALSTON MD ([id number]) on Diagnosis Line: 11/18/2016 10:11:09 AM INTERPRETING KULWANT OWENS
[~2016-11-18 07:24] MED LIST changes: +ALPRAZOLAM; +DULERA 100 MCG/13 GM
[2016-11-18 08:38] LABS: BASOPHIL# 0.1 X10e3 (0-0.3); BASOPHIL% 1.2 % (0-2.5); DIFF IND NO; EOSINOPHIL# 0.2 X10e3 (0-0.7); EOSINOPHIL% 2.1 % (0.0-7.0); HEMATOCRIT 41.4 % (35.0-45.0); HEMOGLOBIN 13.1 gm/dL (12.0-16.0); MEAN CELL VOLUME 87.9 FL (83-96); MEAN CORPUSCULAR HEMOGLOBIN 27.9 PG (28-34); MEAN CORPUSCULAR HGB CONC 31.7 g/dL (30-36); MEAN PLATELET VOLUME 8.9 FL (6.5-11.5); MONOCYTE# 0.4 X10e3 (0-1.0); MONOCYTE% 5.6 % (3.0-12.0); NEUTROPHIL# 4.8 X10e3 (1.5-7.1); NEUTROPHIL% 64.1 % (40-75); PLATELET COUNT 192 X10e3 (140-420); RED BLOOD COUNT 4.71 X10e (3.90-5.30); RED CELL DISTRIBUTION WIDTH 16.3 % (11.0-15.5); WHITE BLOOD COUNT 7.5 X10e3 (4.0-10.5)
[2016-11-18 08:51] LABS: INR 0.9; PARTIAL THROMBOPLASTIN TIME 26.3 SECONDS (23.5-31.3)
[2016-11-18 09:08] LABS: BILIRUBIN, DIRECT 0.1 mg/dL (0.0-0.2); BILIRUBIN,INDIRECT 0.5 mg/dL (0.0-0.9); BILIRUBIN,TOTAL 0.6 mg/dL (0.2-2.0); BUN/CREATININE RATIO 15.71; CALCIUM SERUM 9.2 mg/dL (8.4-10.2); CREATININE SERUM 0.7 mg/dL (0.6-1.4); GLOM FILT RATE Estimated 92.2 mL/min (>60); POTASSIUM 3.9 mmol/L (3.5-5.1)
[2016-11-18 10:31] LABS: %MB 2.7 % (0.0-4.0)
[2016-11-18 11:05] LABS: POC - CKMB 1.4 ng/mL (0.0-7.9); POC - TROPONIN <0.05 ng/mL (<=0.05)
== END 2016-11-18 14:35 | disposition left against medical advice (07) ==
LOC: CED 07:24
PROVIDERS: Emergency Medicine
DX: J44.9 Chronic obstructive pulmonary disease, unspecified (principal); M79.89 Other specified soft tissue disorders; F31.9 Bipolar disorder, unspecified; Z98.51 Tubal ligation status; Z87.891 Personal history of nicotine dependence; Z79.2 Long term (current) use of antibiotics; Z79.899 Other long term (current) drug therapy; Z88.2 Allergy status to sulfonamides; Z88.1 Allergy status to other antibiotic agents
CPT/HCPCS: 36415; 71010; 71020; 80048; 80076; 82550; 82553; 83880; 84484; 85025; 85610; 85730; 93005; 94640; 96374; 99285; J2930

== ENCOUNTER 2016-12-01 03:47 | Emergency (ER) | payer OTHER ==
[~2016-12-01] VITALS: Ht 165.1 cm; Wt 72.6 kg
--- NOTE | ~2016-12-01 | EKG ---
PATIENT: MC FUENTES UNIT #: [id number] Ventricular Rate: 85 BPM Atrial Rate: 85 BPM P-R Interval: 116 ms QRS Duration: 80 ms Q-T Interval: 362 ms QTC Calculation(Bezet): 430 ms P Beaver: 66 degrees Calculated R Beaver: 51 degrees Calculated T Beaver: 55 degrees Diagnosis Line: Normal sinus rhythm Diagnosis Line: Normal ECG Diagnosis Line: When compared with ECG of 18-NOV-2016 08:08, Diagnosis Line: No significant change was found Diagnosis Line: Confirmed by DURGA ALSTON MD ([id number]) on Diagnosis Line: 12/03/2016 8:06:57 PM INTERPRETING MD: GRACIELA
--- NOTE | ~2016-12-01 | CR63 ---
[facility] A Service of [facility] RADIOLOGY TEXT RESULTS PATIENT: MC FUENTES LOCATION: [facility] : 54 UNIT #: [id number] AGE: [address]: JEREMIAS URBAN APRN SEX: F ORDER DR: [id number] [facility] [address] [place], [place] [address] [id number] E MR#: [id number] Acc #: [id number] NAME: MC FUENTES : 1950 SEX: F STUDY DATE/TIME: 12/01/2016 04:43 UNIT: [facility] ROOM: STUDY DESCRIPTION: CR Chest 2 View Attending Physician: Jeremias Urban Aprn Ordering Physician: Jeremias Urban Aprn [facility] REPORT This report is preliminary unless electronic signature is present EXAM Chest x-ray, 12/01 at 04:43 INDICATION Shortness of air and cough for a few weeks. History of smoking and COPD. FINDINGS PA and lateral views of the chest are compared with 11/18/2016. Cardiac and mediastinal contours are stable. There is some chronic scarring or atelectasis in the lung bases. There is emphysema. The lungs otherwise are clear. No pneumothorax. IMPRESSION Emphysema with chronic scarring or atelectasis in the bases. Dictated by... Santy Dominguez Jr., M.D. THIS IS AN ELECTRONICALLY VERIFIED REPORT Santy Dominguez Jr., M.D. at 12/01/2016 8:52 PM ISAÍAS/yadira TD: 12/01/2016 13:09 JOB #: [id number] MEDICAL IMAGING REPORT Page 1 of 1 COPY
[2016-12-01 04:49] LABS: POC - CKMB 1.5 ng/mL (0.0-7.9); POC - TROPONIN <0.05 ng/mL (<=0.05)
[2016-12-01 04:55] LABS: BASOPHIL% 0.5 % (0-2.5); EOSINOPHIL# 0.1 X10e3 (0-0.7); HEMATOCRIT 37.6 % (35.0-45.0); LYMPHOCYTE# 1.8 X10e3 (1.0-3.5); LYMPHOCYTE% 19.3 % (17.0-45.0); MEAN CELL VOLUME 87.8 FL (83-96); MEAN CORPUSCULAR HEMOGLOBIN 27.9 PG (28-34); MEAN CORPUSCULAR HGB CONC 31.8 g/dL (30-36); MEAN PLATELET VOLUME 8.7 FL (6.5-11.5); MONOCYTE# 0.6 X10e3 (0-1.0); MONOCYTE% 6.6 % (3.0-12.0); NEUTROPHIL# 6.8 X10e3 (1.5-7.1); NEUTROPHIL% 72.6 % (40-75); PLATELET COUNT 209 X10e3 (140-420); RED BLOOD COUNT 4.29 X10e (3.90-5.30); RED CELL DISTRIBUTION WIDTH 16.6 % (11.0-15.5); WHITE BLOOD COUNT 9.3 X10e3 (4.0-10.5)
[2016-12-01 04:56] LABS: DIFF IND NO
[2016-12-01 05:44] LABS: ALBUMIN SERUM 3.6 g/dL (3.5-5.0); ALKALINE PHOSPHATASE 70 U/L (32-92); ALT (SGPT) 16 U/L (10-40); AST (SGOT) 20 U/L (10-42); BILIRUBIN,TOTAL 0.7 mg/dL (0.2-2.0); BLOOD UREA NITROGEN 14 mg/dL (9-23); CALCIUM SERUM 8.8 mg/dL (8.4-10.2); CARBON DIOXIDE 33 mmol/L (22-31); CHLORIDE 102 mmol/L (100-111); CREATININE SERUM 0.7 mg/dL (0.6-1.4); GLOM FILT RATE Estimated 92.2 mL/min (>60); GLUCOSE FASTING 107 mg/dL (70-110); POTASSIUM 3.8 mmol/L (3.5-5.1); PROTEIN TOTAL SERUM 6.2 g/dL (6.0-8.3); SODIUM 140 mmol/L (135-145)
[2016-12-01 05:46] LABS: BILIRUBIN, DIRECT <0.1 mg/dL (0.0-0.2); BILIRUBIN,INDIRECT 0.6 mg/dL (0.0-0.9)
== END 2016-12-01 07:45 | disposition home or self-care (01) ==
LOC: CED 03:47
PROVIDERS: Nurse Practitioner Family
DX: J44.9 Chronic obstructive pulmonary disease, unspecified (principal); F31.9 Bipolar disorder, unspecified; F17.210 Nicotine dependence, cigarettes, uncomplicated; Z88.2 Allergy status to sulfonamides; Z88.8 Allergy status to other drugs, medicaments and biological substances; Z79.899 Other long term (current) drug therapy
CPT/HCPCS: 36415; 71020; 80048; 80076; 82553; 84484; 85025; 93005; 94640; 96374; 99285; J2930